=== PATIENT | female | born 1970 | race Caucasian/White ===

== ENCOUNTER → 2017-02-26 | Outpatient (CLI) | payer BC ==
--- NOTE | 2017-02-27 19:09 | Diagnostic Imaging Report ---
EXAMINATION: Digital Mammogram bilateral screening. INDICATION: Screening. COMPARISON: This study was compared to the prior exams of 01/03/2016, 08/28/2014, and 06/20/2013. At this time, there are no current complaints. The current study was also evaluated with a Computer Aided Detection (CAD) system. FINDINGS: The fibroglandular tissue in both breasts is dense. This does limit the sensitivity of this exam. Overall, there does not appear to have been any significant change when compared to the prior study. No primary or secondary sign of malignancy is noted. IMPRESSION: There is no radiographic evidence for malignancy. ACR BI-RADS Category 1: NEGATIVE.. Result letter will be mailed to the patient. Note: At least 10% of breast cancer is not imaged by mammography. Dictated by: Dictated on workstation # [id number]
== END ==
LOC: RAD 10:02
PROVIDERS: ATTEND Nurse Practitioner
DX: Z12.31 Encounter for screening mammogram for malignant neoplasm of breast (principal)
CPT/HCPCS: 77067

== ENCOUNTER → 2017-05-23 | Outpatient (CLI) | payer BC ==
--- NOTE | 2017-05-23 19:17 | Diagnostic Imaging Report ---
INDICATION: Injury with heel pain, also stubbing the third toe. FINDINGS: There is no fracture, dislocation, or acute articular incongruity. No bony destruction. No abnormal periosteal reaction. IMPRESSION: No acute-appearing abnormality. Unremarkable foot radiographs. Dictated by: Dictated on workstation # [id number]
--- NOTE | 2017-05-23 19:18 | Diagnostic Imaging Report ---
INDICATION: Second and third toe pain. Stubbing injury. FINDINGS: There is no fracture, dislocation, or acute articular incongruity. IMPRESSION: Unremarkable toe radiographs. Dictated by: Dictated on workstation # [id number]
== END ==
LOC: RAD 11:40
PROVIDERS: ATTEND Family Medicine
DX: M79.675 Pain in left toe(s) (principal); M79.672 Pain in left foot
CPT/HCPCS: 73630; 73660

== ENCOUNTER → 2019-01-13 | Outpatient (CLI) | payer BC ==
--- NOTE | 2019-01-13 17:58 | Diagnostic Imaging Report ---
INDICATION: Routine screening. Comparison is made with prior mammogram from 02/26/2017 and 01/03/2016. 2-D and 3-D bilateral screening mammography was performed with a Computer Aided Detection (CAD) system. FINDINGS: Both breasts remain heterogeneously dense, limiting the sensitivity of mammography. A circumscribed density in the inner aspect of the right breast appear stable. No dominant mass or malignant-appearing microcalcifications are seen. There are benign calcifications bilaterally. The axillae are unremarkable. IMPRESSION: No mammographic features suspicious for malignancy are identified. ACR BI-RADS Category 2: Benign findings. Result letter will be mailed to the patient. Note: At least 10% of breast cancer is not imaged by mammography. Dictated by: Dictated on workstation # [id number]
== END ==
LOC: RAD 10:37
PROVIDERS: ATTEND Nurse Practitioner
DX: Z12.31 Encounter for screening mammogram for malignant neoplasm of breast (principal)
CPT/HCPCS: 77067

== ENCOUNTER → 2020-02-16 | Outpatient (CLI) | payer BC ==
[~2020-02-16] MED LIST: RT-ALBUTEROL SULF 2.5 MG/3 ML PRE-MIX VIAL INH ONE
--- NOTE | 2020-02-16 09:36 | Diagnostic Imaging Report ---
PROCEDURE: CT chest without contrast. TECHNIQUE: Multiple contiguous axial images were obtained through the chest without the use of intravenous contrast. Auto Exposure Controls were utilized during the CT exam to meet ALARA standards for radiation dose reduction. INDICATION: Persistent cough. No lung mass or pulmonary nodule. No infiltrate or focal consolidation. No effusion or pneumothorax. The lung volumes symmetric and normal. No bronchiectasis. No aneurysm or lymphadenopathy. No chest effusion or fluid collection. The visualized upper abdomen revealed no acute appearing abnormality. IMPRESSION: Unremarkable CT chest. Dictated by: Dictated on workstation # [id number]
== END ==
LOC: RT 07:45
PROVIDERS: ATTEND Family Medicine
DX: J98.01 Acute bronchospasm (principal)
CPT/HCPCS: 71250; 94060; 94726; 94729

== ENCOUNTER 2021-01-25 12:04 | Emergency (ER) | payer BC ==
[~2021-01-25] VITALS: Ht 165.1 cm; Wt 72.5 kg
[2021-01-25 12:41] LABS: BASOPHILS % (AUTO) 0 % (0-10); EOSINOPHILS # (AUTO) 0.1 10^3/uL (0.0-0.3); EOSINOPHILS % (AUTO) 1 % (0-10); HEMATOCRIT 44 % (35-52); HEMOGLOBIN 14.9 g/dL (11.5-16.0); LYMPHOCYTES # (AUTO) 1.2 10^3/uL (1.0-4.0); LYMPHOCYTES % (AUTO) 18 % (12-44); MEAN CORPUSCULAR HEMOGLOBIN 30 pg (25-34); MEAN CORPUSCULAR HGB CONC 34 g/dL (32-36); MEAN CORPUSCULAR VOLUME 90 fL (80-99); MEAN PLATELET VOLUME 8.9 fL (9.0-12.2); MONOCYTES # (AUTO) 0.7 10^3/uL (0.0-1.0); MONOCYTES % (AUTO) 11 % (0-12); NEUTROPHILS # (AUTO) 4.7 10^3/uL (1.8-7.8); NEUTROPHILS % (AUTO) 69 % (42-75); PLATELET COUNT 450 10^3/uL (130-400); WHITE BLOOD COUNT 6.7 10^3/uL (4.3-11.0)
[2021-01-25 12:49] LABS: ALBUMIN 4.4 GM/DL (3.2-4.5); CHLORIDE 99 MMOL/L (98-107); POTASSIUM 3.7 MMOL/L (3.6-5.0); SODIUM 134 MMOL/L (135-145)
--- NOTE | 2021-01-25 12:49 | Diagnostic Imaging Report ---
Indication: Chest pain COMPARISON: 02/16/2020 FINDINGS: Heart size and pulmonary vascularity are within normal limits, and the lungs are clear, bilaterally. IMPRESSION: Unremarkable chest. Dictated by: Dictated on workstation # [id number]
[2021-01-25 12:51] LABS: CALCIUM 9.2 MG/DL (8.5-10.1)
[2021-01-25 12:52] LABS: GLUCOSE 102 MG/DL (70-105); TOTAL PROTEIN 8.2 GM/DL (6.4-8.2)
[2021-01-25 12:53] LABS: CARBON DIOXIDE 25 MMOL/L (21-32)
[2021-01-25 12:54] LABS: BILIRUBIN,TOTAL 0.3 MG/DL (0.1-1.0)
[2021-01-25 12:55] LABS: ALKALINE PHOSPHATASE 80 U/L (40-136); CREATININE SERUM 0.78 MG/DL (0.60-1.30); GFR ESTIMATED > 60
[2021-01-25 12:56] LABS: BUN/CREATININE RATIO 9
[2021-01-25 12:58] LABS: ALANINE AMINOTRANSFERASE 21 U/L (0-55); INR 0.9 (0.8-1.4); MAGNESIUM 1.9 MG/DL (1.6-2.4)
[2021-01-25] MEDS ORDERED: PROP40TA5 PO (13:42)
--- NOTE | 2021-01-25 13:42 | ED Cardiac General ---
History of Present Illness General Chief Complaint: Cardiac/General Problems Stated Complaint: CP, RAPID HR Nursing Triage Note: Pt to ED from PCP office. Pt reports ending COVID quarantine yesterday. Pt was diagnosed on 01/16/21 and symptoms began on 01/14/21. Pt reports taking Dexamethasone 6 mg on Sunday and then began experiencing severe anxiety, high blood pressure and tachycardia. Pt denies chest pain, SOB. Source: patient Exam Limitations: no limitations History of Present Illness Date Seen by Provider: Jan 25, 2021 Time Seen by Provider: 12:07 Initial Comments This 50-year-old woman presents to the emergency room 1 day after her Covid quarantine ended with concerns about high blood pressure and tachycardia. She has also been rather anxious. She has been noticing the symptoms for the past 4 days. She denies any cough, shortness of breath, or chest pain. She has been using nebulizer treatments and took dexamethasone on Sunday. She believes these medications may have contributed to her symptoms. Her positive Covid test was on January 16 and she experienced symptoms for couple days prior to that. She was previously treated for hypertension but is not currently medicated for it. Allergies and Home Medications Allergies Coded Allergies: No Known Drug Allergies (Verified Allergy, Unknown, 08/28/08) Home Medications Propranolol HCl 40 Mg Tablet, 40 MG PO BID Prescribed by: LEON PETERSON on 01/25/21 1342 Patient Home Medication List Home Medication List Reviewed: Yes Review of Systems Review of Systems Constitutional: no symptoms reported EENTM: No Symptoms Reported Respiratory: No Symptoms Reported Cardiovascular: See HPI Gastrointestinal: No Symptoms Reported Genitourinary: No Symptoms Reported Musculoskeletal: no symptoms reported Skin: no symptoms reported Psychiatric/Neurological: See HPI Endocrine: No Symptoms Reported Hematologic/Lymphatic: No Symptoms Reported Past Oxypjew-[id number]-Qvoyfv Hx Past Med/Social Hx: Reviewed Nursing Past Med/Soc Hx Patient Social History Alcohol Use: Denies Use 2nd Hand Smoke Exposure: No Recent Infectious Disease Expo: No Past Medical History Surgeries: Yes (D&C, wisdom teeth) Respiratory: Yes (COVID December 2020) Cardiac: No Neurological: No : No Last Menstrual Period: Jan 24, 2021 Reproductive Disorders: Yes (UNABLE TO CARRY A BABY HAS HAD 2 MISSED ABORTIONS) Sexually Transmitted Disease: No Gastrointestinal: No Musculoskeletal: No Endocrine: No HEENT: No Cancer: No Psychosocial: No Blood Disorders: No Physical Exam Vital Signs Vital Signs - First Documented 01/25/21 12:10 Temp 35.8 Pulse 94 Resp 16 B/P (MAP) 168/109 (128) Pulse Ox 99 O2 Delivery Room Air Capillary Refill : Less Than 3 Seconds Height, Weight, BMI Height: '" Weight: lbs. oz. kg; 26.00 BMI Method: General Appearance: No Apparent Distress, WD/WN HEENT: PERRL/EOMI, Normal ENT Inspection Neck: Normal Inspection Respiratory: Lungs Clear, Normal Breath Sounds, No Accessory Muscle Use Cardiovascular: Regular Rate, Rhythm, No Edema, No Murmur Gastrointestinal: Non Tender, Soft Extremity: Normal Inspection, No Calf Tenderness, No Pedal Edema Neurologic/Psychiatric: Alert, Oriented x3, No Motor/Sensory Deficits, Normal Mood/Affect, soda maker II-XII Norm as Tested Skin: Normal Color, Warm/Dry Progress/Results/Core Measures Results/Orders Lab Results Laboratory Tests Test 01/25/21 12:25 Range/Units White Blood Count 6.7 4.3-11.0 10^3/uL Red Blood Count 4.92 3.80-5.11 10^6/uL Hemoglobin 14.9 11.5-16.0 g/dL Hematocrit 44 35-52 % Mean Corpuscular Volume 90 80-99 fL Mean Corpuscular Hemoglobin 30 25-34 pg Mean Corpuscular Hemoglobin Concent 34 32-36 g/dL Red Cell Distribution Width 12.0 10.0-14.5 % Platelet Count 450 H 130-400 10^3/uL Mean Platelet Volume 8.9 L 9.0-12.2 fL Immature Granulocyte % (Auto) 0 % Neutrophils (%) (Auto) 69 42-75 % Lymphocytes (%) (Auto) 18 12-44 % Monocytes (%) (Auto) 11 0-12 % Eosinophils (%) (Auto) 1 0-10 % Basophils (%) (Auto) 0 0-10 % Neutrophils # (Auto) 4.7 1.8-7.8 10^3/uL Lymphocytes # (Auto) 1.2 1.0-4.0 10^3/uL Monocytes # (Auto) 0.7 0.0-1.0 10^3/uL Eosinophils # (Auto) 0.1 0.0-0.3 10^3/uL Basophils # (Auto) 0.0 0.0-0.1 10^3/uL Immature Granulocyte # (Auto) 0.0 0.0-0.1 10^3/uL Prothrombin Time 13.0 12.2-14.7 SEC INR Comment 0.9 0.8-1.4 Activated Partial Thromboplast Time 29 24-35 SEC D-Dimer < 0.27 0.00-0.49 UG/ML Sodium Level 134 L 135-145 MMOL/L Potassium Level 3.7 3.6-5.0 MMOL/L Chloride Level 99 98-107 MMOL/L Carbon Dioxide Level 25 21-32 MMOL/L Anion Gap 10 5-14 MMOL/L Blood Urea Nitrogen 7 7-18 MG/DL Creatinine 0.78 0.60-1.30 MG/DL Estimat Glomerular Filtration Rate > 60 BUN/Creatinine Ratio 9 Glucose Level 102 70-105 MG/DL Calcium Level 9.2 8.5-10.1 MG/DL Corrected Calcium 8.9 8.5-10.1 MG/DL Magnesium Level 1.9 1.6-2.4 MG/DL Total Bilirubin 0.3 0.1-1.0 MG/DL Aspartate Amino Transf (AST/SGOT) 18 5-34 U/L Alanine Aminotransferase (ALT/SGPT) 21 0-55 U/L Alkaline Phosphatase 80 40-136 U/L Myoglobin 24.6 10.0-92.0 NG/ML Troponin I < 0.028 <0.028 NG/ML Total Protein 8.2 6.4-8.2 GM/DL Albumin 4.4 3.2-4.5 GM/DL Serum Test, Qualitative NEGATIVE NEGATIVE My Orders Orders - LEON OTOOLE MD Cbc With Automated Diff (01/25/21 12:07) Magnesium (01/25/21 12:07) Chest 1 View, Ap/Pa Only (01/25/21 12:07) Ekg Tracing (01/25/21 12:07) Comprehensive Metabolic Panel (01/25/21 12:07) Myoglobin Serum (01/25/21 12:07) Protime With Inr (01/25/21 12:07) Partial Thromboplastin Time (01/25/21 12:07) O2 (01/25/21 12:07) Monitor-Rhythm Ecg Trace Only (01/25/21 12:07) Ed Iv/Invasive Line Start (01/25/21 12:07) Fibrin Degradation Products (01/25/21 12:18) Hcg,Qualitative Serum (01/25/21 12:18) Troponin I (01/25/21 12:25) Vital Signs/I&O 01/25/21 01/25/21 12:10 13:50 Temp 35.8 35.8 Pulse 94 92 Resp 16 16 B/P (MAP) 168/109 (128) 133/92 (128) Pulse Ox 99 97 O2 Delivery Room Air Room Air Blood Pressure Mean: 128 Progress Progress Note : Progress Note Work-up was unremarkable. Patient was noted to be mildly tachycardic and hypertensive. We discussed options which included observation follow-up with her primary care provider versus treatment with a beta-susan such as propranolol for her hypertension and tachycardia. A prescription for propranolol was provided. Initial ECG Impression Date: Jan 25, 2021 Initial ECG Impression Time: 12:12 Initial ECG Rate: 88 Initial ECG Rhythm: Normal Sinus Initial ECG Impression: Normal Comment Normal sinus rhythm with no ST elevation or depression. No abnormal intervals or axis deviation. Departure Impression Primary Impression: Tachycardia Additional Impressions: Hypertension Qualified Codes: I10 - Essential (primary) hypertension [id number] condition Disposition: 01 HOME, SELF-CARE Condition: Stable Departure-Patient Inst. Decision time for Depature: 13:39 Referrals: KHARI OLSON DO (PCP/Family) Primary Care Physician Patient Instructions: High Blood Pressure (DC) Add. Discharge Instructions: Drink plenty of clear liquids to stay well-hydrated. Follow-up with Dr. Olson soon as possible. You may start propranolol as prescribed to help with high blood pressure and rapid heart rate. Call with questions or concerns. Return to the emergency room if you have worsening symptoms. All discharge instructions reviewed with patient and/or family. Voiced understanding. Scripts Propranolol HCl (Propranolol HCl) 40 Mg Tablet 40 MG PO BID, #60 TAB Prov: LEON OTOOLE MD 01/25/21 Work/School Note: Work Release Form Date Seen in the Emergency Department: Jan 25, 2021 Return to Work: Jan 27, 2021 Restrictions: No Restrictions Copy Copies To 1: KHARI OLSON JOSHUA T MD Jan 25, 2021 13:42
[2021-01-25 13:50] VITALS: BP 133/92
== END 2021-01-25 13:50 | disposition home or self-care (01) ==
LOC: EDUNIT# 12:04 → ER 12:06
DX: R00.0 Tachycardia, unspecified (principal); I10 Essential (primary) hypertension
CPT/HCPCS: 36415; 71045; 80053; 83735; 83874; 84484; 84703; 85025; 85379; 85610; 85730; 93005; 93041